=== PATIENT | female | born 1940 | race Caucasian/White ===

== ENCOUNTER 2018-07-26 19:41 | Emergency (ER) | payer MEDICARE, OTHER ==
[2018-07-26 20:05] VITALS: RESP 20; TEMP 98.4
[2018-07-26 21:24] VITALS: BP 129/75; PULSE 63; O2SAT 96
== END 2018-07-26 21:35 | DRG 594 ==
LOC: ED 19:41
DX: L97.412 Non-pressure chronic ulcer of right heel and midfoot with fat layer exposed (principal); E11.9 Type 2 diabetes mellitus without complications
CPT/HCPCS: 99282; 99283; A6232; A6446

== ENCOUNTER 2018-09-28 11:02 | Inpatient (IN) | payer MEDICARE, OTHER ==
[2018-09-28] MEDS ORDERED: VANCOMYCIN HCL 500 MG PDS 1,500 MG in SODIUM CHLORIDE 0.9% 250 ML 250 ML IV ONE (11:36)
[2018-09-28] MEDS ORDERED: SODIUM CHLORIDE 0.9% 1000ML 1,000 ML IV ONE (11:37)
[2018-09-28] MEDS ORDERED: ACETAMINOPHEN 650 MG SUP PR ONE ×2 (11:38→12:05)
[2018-09-28 12:07] LABS: APPEARANCE,URINE Clear; BILIRUBIN,URINE NEGATIVE (NEGATIVE); COLOR,URINE Yellow; GLUCOSE, URINE (UA) NEGATIVE (NEGATIVE); KETONES,URINE NEGATIVE (NEGATIVE); LEUKOCYTE ESTERASE ,URINE NEGATIVE (NEGATIVE); NITRATE,URINE NEGATIVE (NEGATIVE); OCCULT BLOOD,URINE TRACE INTACT (NEG-TRACE); UROBILINOGEN,URINE 0.2 (0.2-1.0 EU)
[2018-09-28 12:25] LABS: HEMATOCRIT 44 % (35-47); HEMOGLOBIN 13.7 gm/dl (12.0-15.5); MEAN CORPUSCULAR HEMOGLOBIN 26.1 pg (27.0-32.0); MEAN CORPUSCULAR HGB CONC 30.9 gm/dl (32.0-36.0); MEAN CORPUSCULAR VOLUME 85 fL (81-99)
[2018-09-28] MEDS ORDERED: VANCOMYCIN HYDROCHLORIDE 500 MG PDS IV ONE ×3 (12:34→23:35)
[2018-09-28] MEDS ORDERED: PIPERACILLIN/TAZOBACT 3.375 GM PDS IV ONE ×3 (12:34→23:29)
[2018-09-28 12:42] LABS: ALBUMIN 2.9 gm/dl (3.4-5.0); BILIRUBIN,TOTAL 0.5 mg/dl (0.2-1.0); CALCIUM 9.3 mg/dl (8.5-10.1); CARBON DIOXIDE 34.1 mEq/L (21-32); CREATININE 1.39 mg/dl (0.60-1.00); CRP INFLAMMATORY 5.32 mg/dl (0.00-0.33); TOTAL PROTEIN 7.5 gm/dl (6.4-8.2); TROP I 0.046 ng/ml (0.000-0.056)
[2018-09-28 12:44] LABS: POTASSIUM 2.9 mMol/L (3.5-5.1)
[2018-09-28 12:45] LABS: LACTIC ACID 1.9 mMol/L (0.0-2.0)
[2018-09-28] MEDS: PIPERACILLIN/TAZOBACT 3.375 GM 3.375 GM in SODIUM CHLORIDE 0.9% 100 ML 100 ML IV SCH ×3 (12:45→23:48)
[2018-09-28 12:52] LABS: BACTERIA TRACE (< 1+); CRYSTALS NEGATIVE (0-3 AVE/HPF); RBC,URINE 0-2 (0-3AV/HPF); WBC,URINE 0-2 (0-5AV/HPF)
[2018-09-28 13:00] LABS: BAND NEUTROPHILS % (MANUAL) 8 %; BASOPHILS % (MANUAL) 0 % (0-3); EOSINOPHILS % (MANUAL) 0 % (0-9); LYMPHOCYTES % (MANUAL) 4 % (10-50); MONOCYTES % (MANUAL) 2 % (0-12); NEUTROPHILS % (MANUAL) 86 % (37-80); NORMAL RBCS NORMAL RBCS
[2018-09-28 14:07] LABS: SEDIMENTATION RATE 27 mm/hr (0-20)
[2018-09-28] MEDS ORDERED: POTASSIUM CHLORIDE 2 MEQ/ML 60 MEQ, LIDOCAINE HCL 1% MDV 2 ML in SODIUM CHLORIDE 0.9% 1... IV ONE (14:16)
[2018-09-28] MEDS ORDERED: METOPROLOL TARTRATE 5 MG/5 ML SOL IV ONE ×2 (15:08→15:13)
[2018-09-28] MEDS ORDERED: LIDOCAINE HCL 1% MPF 30 SOL ONE (16:26)
[2018-09-28] MEDS ORDERED: POTASSIUM CHLORIDE 2 MEQ/ML SOL IV ONE (16:26)
[2018-09-28] MEDS ORDERED: SODIUM CHLORIDE 0.9% 100 ML 100 ML IV ONE ×2 (17:32→23:29)
[2018-09-28] MEDS ORDERED: ALUMINUM/MAGNESIUM 30 ML SUS PO PRN (18:13)
[2018-09-28] MEDS ORDERED: MAGNESIUM HYDROXIDE 30 ML SUS PO PRN (18:13)
[2018-09-28] MEDS ORDERED: DOCUSATE SODIUM 100 MG SGL PO PRN (18:13)
[2018-09-28] MEDS ORDERED: ASPIRIN EC 81 MG PO SCH (18:15)
[2018-09-28] MEDS ORDERED: PIPERACILLIN/TAZOBACT 3.375 GM 3 GM in SODIUM CHLORIDE 0.9% 100 ML 100 ML IV SCH (18:30)
[2018-09-28] MEDS: CLONAZEPAM 0.5 MG TAB PO SCH (20:59)
[2018-09-28] MEDS: POTASSIUM CHLORIDE 10 MEQ TER PO SCH (20:59)
[2018-09-28] MEDS: QUETIAPINE FUMARATE 25 MG TAB PO SCH (20:59)
[2018-09-28] MEDS ORDERED: NOVOLOG FLEXPEN SC SCH (21:00)
[2018-09-28] MEDS ORDERED: Non-Formulary Medication MISC (Cetirizine 10 Mg 10 MG) PO SCH (21:00)
[2018-09-28] MEDS ORDERED: POTASSIUM CHLORIDE 40 MEQ PO SCH (21:00)
[2018-09-28] MEDS: ACETAMINOPHEN 325 MG PO SCH (21:00)
[2018-09-28] MEDS: TRAMADOL HYDROCHLORIDE 50 MG TAB PO SCH (21:00)
[2018-09-28] MEDS: CETIRIZINE HYDROCHLORIDE 10 MG TAB PO SCH (21:04)
[2018-09-28] MEDS: PROPRANOLOL HCL 10 MG TABLET PO SCH (21:33)
[2018-09-28] MEDS ORDERED: SODIUM CHLORIDE 0.9% 250 ML 250 ML IV ONE (23:31)
[2018-09-29] MEDS: VANCOMYCIN HCL 500 MG PDS 1,500 MG in SODIUM CHLORIDE 0.9% 250 ML 250 ML IV SCH ×2 (01:26→17:05)
[2018-09-29] MEDS: SODIUM CHLORIDE 0.9% FLUSH 10 ML SOL IV PRN (05:26)
[2018-09-29] MEDS ORDERED: SODIUM CHLORIDE 0.9% 100 ML 100 ML IV ONE (06:07)
[2018-09-29] MEDS ORDERED: PIPERACILLIN/TAZOBACT 3.375 GM PDS IV ONE (06:07)
[2018-09-29] MEDS: PIPERACILLIN/TAZOBACT 3.375 GM 3.375 GM in SODIUM CHLORIDE 0.9% 100 ML 100 ML IV SCH ×2 (06:15→12:03)
[2018-09-29 07:50] LABS: HEMATOCRIT 37 % (35-47); HEMOGLOBIN 11.3 gm/dl (12.0-15.5); MEAN CORPUSCULAR HEMOGLOBIN 25.4 pg (27.0-32.0); MEAN CORPUSCULAR HGB CONC 30.1 gm/dl (32.0-36.0); MEAN CORPUSCULAR VOLUME 84 fL (81-99)
[2018-09-29 07:55] LABS: CALCIUM 8.5 mg/dl (8.5-10.1); CARBON DIOXIDE 28.2 mEq/L (21-32); CHOL/HDL RATIO 3.8 (2.2-4.5); CREATININE 1.65 mg/dl (0.60-1.00); CRP INFLAMMATORY 25.6 mg/dl (0.00-0.33); LDL CHOLESTEROL,CALCULATED 87.8 mg/dl (50-130); LDL/HDL RATIO 2.4 (1.1-3.1); POTASSIUM 3.3 mMol/L (3.5-5.1)
[2018-09-29 08:09] LABS: NEUTROPHILS % (MANUAL) 58 % (37-80)
[2018-09-29 08:10] LABS: BAND NEUTROPHILS % (MANUAL) 37 %; BASOPHILS % (MANUAL) 0 % (0-3); EOSINOPHILS % (MANUAL) 1 % (0-9); LYMPHOCYTES % (MANUAL) 2 % (10-50); MONOCYTES % (MANUAL) 2 % (0-12); NORMAL RBCS PRESENT
[2018-09-29] MEDS ORDERED: VITAMIN D PO SCH (09:00)
[2018-09-29] MEDS ORDERED: OMEPRAZOLE 20 MG CAPSULE PO SCH ×2 (09:00)
[2018-09-29] MEDS: NOVOLOG FLEXPEN SC SCH ×3 (09:24→18:27)
[2018-09-29] MEDS: TRAMADOL HYDROCHLORIDE 50 MG TAB PO SCH ×4 (09:44→21:58)
[2018-09-29] MEDS: ACETAMINOPHEN 325 MG PO SCH ×2 (09:45→21:58)
[2018-09-29] MEDS: CHOLECALCIFEROL 1,000 IU TAB PO SCH (09:45)
[2018-09-29] MEDS: QUETIAPINE FUMARATE 25 MG TAB PO SCH ×2 (09:45→21:58)
[2018-09-29] MEDS: POTASSIUM CHLORIDE 10 MEQ TER PO SCH ×3 (09:45→22:01)
[2018-09-29] MEDS: ASPIRIN EC 81 MG PO SCH (09:45)
[2018-09-29] MEDS: CLONAZEPAM 0.5 MG TAB PO SCH ×2 (09:46→21:58)
[2018-09-29] MEDS: ALLOPURINOL 100 MG TAB PO SCH (09:47)
[2018-09-29] MEDS: PROPRANOLOL HCL 10 MG TABLET PO SCH ×3 (10:56→21:58)
[2018-09-29] MEDS: INSULIN DEGLUDEC 200 UNIT/ML INSULN.PEN SQ SCH (11:55)
[2018-09-29] MEDS: PANTOPRAZOLE SODIUM 40 MG ECT PO SCH (11:55)
[2018-09-29] MEDS ORDERED: VANCOMYCIN HCL 500 MG PDS 1,500 MG in SODIUM CHLORIDE 0.9% 250 ML 250 ML IV SCH (13:33)
[2018-09-29] MEDS: CEFEPIME HYDROCHLORIDE 2 GM in SODIUM CHLORIDE 0.9% 100 ML 100 ML IV SCH (14:37)
[2018-09-29 15:02] LABS: CALCIUM 8.7 mg/dl (8.5-10.1); CARBON DIOXIDE 29.3 mEq/L (21-32); CREATININE 1.81 mg/dl (0.60-1.00); MAGNESIUM 1.2 mg/dl (1.8-2.4); POTASSIUM 3.6 mMol/L (3.5-5.1)
[2018-09-29 15:11] LABS: LACTIC ACID 2.8 mMol/L (0.0-2.0)
[2018-09-29 15:18] LABS: CRP INFLAMMATORY 28.32 mg/dl (0.00-0.33)
[2018-09-29] MEDS ORDERED: ACETAMINOPHEN 325 MG PO PRN (16:23)
[2018-09-29] MEDS ORDERED: LACTATED RINGERS 1,000 ML IV ONE (16:23)
[2018-09-29] MEDS ORDERED: MAGNESIUM SULFATE 1 GM/2 ML SOL IV ONE (16:30)
[2018-09-29] MEDS ORDERED: ACETAMINOPHEN 500 MG 500 MG TAB ONE (16:32)
[2018-09-29] MEDS ORDERED: ACETAMINOPHEN 500 MG 500 MG TAB PO PRN (16:44)
[2018-09-29] MEDS ORDERED: MAGNESIUM SULFATE 2 GM in NS 100 ML IV ONE (16:45)
[2018-09-29] MEDS ORDERED: MAGNESIUM SULFATE 5 GM/10 ML SOL ONE (16:55)
[2018-09-29] MEDS ORDERED: LACTATED RINGERS 1,000 ML IV SCH (17:45)
[2018-09-29] MEDS: VITE AC PO SCH (20:27)
[2018-09-29] MEDS: ASCORBATE SOD PO SCH (20:27)
[2018-09-29] MEDS: ARGININE PO SCH (20:27)
[2018-09-29] MEDS: CETIRIZINE HYDROCHLORIDE 10 MG TAB PO SCH (21:59)
[2018-09-29] MEDS: HEPARIN SODIUM 5000 U/ML SOL SC SCH (22:02)
[2018-09-30] MEDS: CEFEPIME HYDROCHLORIDE 2 GM in SODIUM CHLORIDE 0.9% 100 ML 100 ML IV SCH ×2 (01:45→14:39)
[2018-09-30] MEDS: HEPARIN SODIUM 5000 U/ML SOL SC SCH ×3 (06:09→21:52)
[2018-09-30 07:24] LABS: LACTIC ACID 1.3 mMol/L (0.0-2.0)
[2018-09-30 07:38] LABS: HEMOGLOBIN 11.2 gm/dl (12.0-15.5); MEAN CORPUSCULAR HEMOGLOBIN 26.3 pg (27.0-32.0); MEAN CORPUSCULAR HGB CONC 31.4 gm/dl (32.0-36.0)
[2018-09-30 07:41] LABS: CALCIUM 9.1 mg/dl (8.5-10.1); CARBON DIOXIDE 28.7 mEq/L (21-32); CREATININE 1.56 mg/dl (0.60-1.00); CRP INFLAMMATORY 27.51 mg/dl (0.00-0.33); POTASSIUM 3.9 mMol/L (3.5-5.1)
[2018-09-30] MEDS: ASCORBATE SOD PO SCH (07:49)
[2018-09-30] MEDS: VITE AC PO SCH (07:49)
[2018-09-30] MEDS: ARGININE PO SCH (07:49)
[2018-09-30] MEDS ORDERED: POTASSIUM CHLORIDE 2 MEQ/ML SOL IV ONE ×2 (09:21→22:31)
[2018-09-30] MEDS: CHOLECALCIFEROL 1,000 IU TAB PO SCH (09:33)
[2018-09-30] MEDS: PANTOPRAZOLE SODIUM 40 MG ECT PO SCH (09:33)
[2018-09-30] MEDS: CLONAZEPAM 0.5 MG TAB PO SCH ×2 (09:33→21:54)
[2018-09-30] MEDS: TRAMADOL HYDROCHLORIDE 50 MG TAB PO SCH ×4 (09:33→21:16)
[2018-09-30] MEDS: ACETAMINOPHEN 325 MG PO SCH ×2 (09:34→21:16)
[2018-09-30] MEDS: PROPRANOLOL HCL 10 MG TABLET PO SCH ×3 (09:34→21:17)
[2018-09-30] MEDS: POTASSIUM CHLORIDE 10 MEQ TER PO SCH ×3 (09:34→21:16)
[2018-09-30] MEDS: ALLOPURINOL 100 MG TAB PO SCH (09:34)
[2018-09-30] MEDS: SODIUM CHLORIDE 0.45% 1000 ML 1,000 ML with POTASSIUM CHLORIDE 2 MEQ/ML 20 MEQ IV SCH ×2 (09:35→22:34)
[2018-09-30] MEDS: INSULIN DEGLUDEC 200 UNIT/ML INSULN.PEN SQ SCH (09:36)
[2018-09-30] MEDS: NOVOLOG FLEXPEN SC SCH ×3 (09:36→17:33)
[2018-09-30] MEDS: QUETIAPINE FUMARATE 25 MG TAB PO SCH ×2 (09:38→21:54)
[2018-09-30] MEDS ORDERED: SODIUM CHLORIDE 0.9% 250 ML 250 ML IV ONE (20:33)
[2018-09-30] MEDS ORDERED: VANCOMYCIN HYDROCHLORIDE 500 MG PDS IV ONE (20:33)
[2018-09-30] MEDS ORDERED: VANCOMYCIN HCL 500 MG PDS 1,500 MG in SODIUM CHLORIDE 0.9% 250 ML 250 ML IV SCH (21:00)
[2018-09-30] MEDS: CETIRIZINE HYDROCHLORIDE 10 MG TAB PO SCH (21:16)
[2018-10-01] MEDS: CEFEPIME HYDROCHLORIDE 2 GM in SODIUM CHLORIDE 0.9% 100 ML 100 ML IV SCH (01:24)
[2018-10-01] MEDS: HEPARIN SODIUM 5000 U/ML SOL SC SCH ×3 (06:18→22:12)
[2018-10-01 07:19] LABS: HEMATOCRIT 35 % (35-47); HEMOGLOBIN 10.8 gm/dl (12.0-15.5); MEAN CORPUSCULAR HEMOGLOBIN 26.4 pg (27.0-32.0); MEAN CORPUSCULAR HGB CONC 30.6 gm/dl (32.0-36.0); MEAN CORPUSCULAR VOLUME 86 fL (81-99)
[2018-10-01 07:26] LABS: ALBUMIN 1.9 gm/dl (3.4-5.0); BILIRUBIN,TOTAL 0.4 mg/dl (0.2-1.0); CALCIUM 8.8 mg/dl (8.5-10.1); CREATININE 1.47 mg/dl (0.60-1.00); CRP INFLAMMATORY 23.8 mg/dl (0.00-0.33); POTASSIUM 5.2 mMol/L (3.5-5.1); TOTAL PROTEIN 6.5 gm/dl (6.4-8.2)
[2018-10-01 08:01] LABS: ANISOCYTOSIS SLIGHT AMT; BAND NEUTROPHILS % (MANUAL) 16 %; BASOPHILS % (MANUAL) 0 % (0-3); EOSINOPHILS % (MANUAL) 2 % (0-9); LYMPHOCYTES % (MANUAL) 5 % (10-50); MONOCYTES % (MANUAL) 1 % (0-12); NEUTROPHILS % (MANUAL) 76 % (37-80)
[2018-10-01] MEDS: ACETAMINOPHEN 325 MG PO SCH ×2 (09:34→20:26)
[2018-10-01] MEDS: CLONAZEPAM 0.5 MG TAB PO SCH ×2 (09:35→20:25)
[2018-10-01] MEDS: QUETIAPINE FUMARATE 25 MG TAB PO SCH ×2 (09:35→20:26)
[2018-10-01] MEDS: TRAMADOL HYDROCHLORIDE 50 MG TAB PO SCH ×4 (09:35→20:24)
[2018-10-01] MEDS: PROPRANOLOL HCL 10 MG TABLET PO SCH ×3 (09:35→20:25)
[2018-10-01] MEDS: PANTOPRAZOLE SODIUM 40 MG ECT PO SCH (09:35)
[2018-10-01] MEDS: ASPIRIN EC 81 MG PO SCH (09:36)
[2018-10-01] MEDS: ALLOPURINOL 100 MG TAB PO SCH (09:36)
[2018-10-01] MEDS: NOVOLOG FLEXPEN SC SCH ×4 (09:54→17:00)
[2018-10-01] MEDS: INSULIN DEGLUDEC 200 UNIT/ML INSULN.PEN SQ SCH (09:54)
[2018-10-01] MEDS: DOXYCYCLINE 100 MG TAB PO SCH ×2 (09:54→20:24)
[2018-10-01] MEDS: CHOLECALCIFEROL 1,000 IU TAB PO SCH (11:29)
[2018-10-01] MEDS: CETIRIZINE HYDROCHLORIDE 10 MG TAB PO SCH (20:26)
[2018-10-02] MEDS: HEPARIN SODIUM 5000 U/ML SOL SC SCH ×3 (05:37→21:49)
[2018-10-02] MEDS: TRAMADOL HYDROCHLORIDE 50 MG TAB PO SCH ×5 (07:18→21:44)
[2018-10-02 07:29] LABS: HEMATOCRIT 35 % (35-47); HEMOGLOBIN 10.6 gm/dl (12.0-15.5); MEAN CORPUSCULAR HEMOGLOBIN 26.2 pg (27.0-32.0); MEAN CORPUSCULAR HGB CONC 30.8 gm/dl (32.0-36.0); MEAN CORPUSCULAR VOLUME 85 fL (81-99)
[2018-10-02 07:31] LABS: CALCIUM 9.4 mg/dl (8.5-10.1); CARBON DIOXIDE 24.3 mEq/L (21-32); CREATININE 1.44 mg/dl (0.60-1.00); POTASSIUM 4.2 mMol/L (3.5-5.1)
[2018-10-02 08:00] LABS: CRP INFLAMMATORY 26.5 mg/dl (0.00-0.33)
[2018-10-02 08:13] LABS: BAND NEUTROPHILS % (MANUAL) 20 %; BASOPHILS % (MANUAL) 1 % (0-3); EOSINOPHILS % (MANUAL) 2 % (0-9); LYMPHOCYTES % (MANUAL) 10 % (10-50); MONOCYTES % (MANUAL) 2 % (0-12); NEUTROPHILS % (MANUAL) 65 % (37-80)
[2018-10-02 08:14] LABS: ANISOCYTOSIS SLIGHT AMT
[2018-10-02] MEDS: INSULIN DEGLUDEC 200 UNIT/ML INSULN.PEN SQ SCH (08:18)
[2018-10-02] MEDS: NOVOLOG FLEXPEN SC SCH ×3 (08:18→16:45)
[2018-10-02] MEDS: PANTOPRAZOLE SODIUM 40 MG ECT PO SCH (08:20)
[2018-10-02] MEDS: DOXYCYCLINE 100 MG TAB PO SCH ×2 (08:20→21:41)
[2018-10-02] MEDS: CLONAZEPAM 0.5 MG TAB PO SCH ×2 (08:20→21:48)
[2018-10-02] MEDS: PROPRANOLOL HCL 10 MG TABLET PO SCH ×3 (08:20→21:42)
[2018-10-02] MEDS: CHOLECALCIFEROL 1,000 IU TAB PO SCH (08:21)
[2018-10-02] MEDS: ALLOPURINOL 100 MG TAB PO SCH (08:21)
[2018-10-02] MEDS: QUETIAPINE FUMARATE 25 MG TAB PO SCH ×2 (08:21→21:43)
[2018-10-02] MEDS: ACETAMINOPHEN 325 MG PO SCH ×2 (08:21→21:43)
[2018-10-02] MEDS: FUROSEMIDE 80 MG TAB PO SCH ×2 (11:57→15:29)
[2018-10-02] MEDS ORDERED: AMOXICILLIN 250 MG CAP PO SCH (12:00)
[2018-10-02] MEDS ORDERED: AMOXICILLIN 125/5 ML BOTTLE ONE (12:17)
[2018-10-02] MEDS: AMOXICILLIN(FRIDGE) 125/5 ML BOTTLE PO SCH ×3 (12:23→21:40)
[2018-10-02] MEDS: CETIRIZINE HYDROCHLORIDE 10 MG TAB PO SCH (21:44)
[2018-10-03] MEDS: HEPARIN SODIUM 5000 U/ML SOL SC SCH ×3 (06:15→21:16)
[2018-10-03 07:12] LABS: BASOPHILS % (AUTO) 1 % (0-3); EOSINOPHILS % (AUTO) 4 % (0-9); HEMATOCRIT 34 % (35-47); HEMOGLOBIN 10.5 gm/dl (12.0-15.5); LYMPHOCYTES % (AUTO) 16.9 % (10-50); MEAN CORPUSCULAR HEMOGLOBIN 25.9 pg (27.0-32.0); MEAN CORPUSCULAR HGB CONC 30.6 gm/dl (32.0-36.0); MEAN CORPUSCULAR VOLUME 85 fL (81-99); MONOCYTES % (AUTO) 6.3 % (0-12); NEUTROPHILS % (AUTO) 71.8 % (37-80)
[2018-10-03 07:13] LABS: CALCIUM 9.4 mg/dl (8.5-10.1); CARBON DIOXIDE 27.4 mEq/L (21-32); CREATININE 1.49 mg/dl (0.60-1.00); CRP INFLAMMATORY 24.19 mg/dl (0.00-0.33); POTASSIUM 3.4 mMol/L (3.5-5.1)
[2018-10-03] MEDS: NOVOLOG FLEXPEN SC SCH ×3 (09:12→17:15)
[2018-10-03] MEDS ORDERED: INSULIN DEGLUDEC 200 UNIT/ML INSULN.PEN SQ SCH (09:12)
[2018-10-03] MEDS: DOXYCYCLINE 100 MG TAB PO SCH ×2 (10:00→21:08)
[2018-10-03] MEDS: ASPIRIN EC 81 MG PO SCH (10:00)
[2018-10-03] MEDS: CLONAZEPAM 0.5 MG TAB PO SCH ×2 (10:00→21:08)
[2018-10-03] MEDS: FUROSEMIDE 40 MG SOL IV SCH ×3 (10:00→12:52)
[2018-10-03] MEDS: QUETIAPINE FUMARATE 25 MG TAB PO SCH ×2 (10:01→21:08)
[2018-10-03] MEDS: PROPRANOLOL HCL 10 MG TABLET PO SCH ×3 (10:01→21:09)
[2018-10-03] MEDS: ACETAMINOPHEN 325 MG PO SCH ×2 (10:01→21:08)
[2018-10-03] MEDS: PANTOPRAZOLE SODIUM 40 MG ECT PO SCH (10:01)
[2018-10-03] MEDS: POTASSIUM CHLORIDE 10 MEQ TER PO SCH ×2 (10:02→12:59)
[2018-10-03] MEDS: ALLOPURINOL 100 MG TAB PO SCH (10:02)
[2018-10-03] MEDS: TRAMADOL HYDROCHLORIDE 50 MG TAB PO SCH ×4 (10:02→21:08)
[2018-10-03] MEDS: AMOXICILLIN(FRIDGE) 125/5 ML BOTTLE PO SCH ×3 (10:06→21:09)
[2018-10-03] MEDS: CHOLECALCIFEROL 1,000 IU TAB PO SCH (10:06)
[2018-10-03] MEDS ORDERED: FUROSEMIDE 40 MG SOL IV ONE ×2 (11:01→19:38)
[2018-10-03] MEDS: SODIUM CHLORIDE 0.9% FLUSH 10 ML SOL IV PRN ×2 (11:29→21:06)
[2018-10-03 17:16] LABS: CALCIUM 9.7 mg/dl (8.5-10.1); CARBON DIOXIDE 30.6 mEq/L (21-32); CREATININE 1.45 mg/dl (0.60-1.00); POTASSIUM 3.7 mMol/L (3.5-5.1)
[2018-10-03] MEDS: INSULIN DEGLUDEC 200 UNIT/ML INSULN.PEN SQ SCH (17:23)
[2018-10-03] MEDS ORDERED: AMOXICILLIN 125/5 ML BOTTLE ONE (18:41)
[2018-10-03] MEDS: CETIRIZINE HYDROCHLORIDE 10 MG TAB PO SCH (21:08)
[2018-10-04] MEDS: SODIUM CHLORIDE 0.9% FLUSH 10 ML SOL IV PRN (06:44)
[2018-10-04 07:28] LABS: BASOPHILS % (AUTO) 1 % (0-3); EOSINOPHILS % (AUTO) 4 % (0-9); HEMATOCRIT 36 % (35-47); HEMOGLOBIN 10.7 gm/dl (12.0-15.5); LYMPHOCYTES % (AUTO) 18.4 % (10-50); MEAN CORPUSCULAR HEMOGLOBIN 25.5 pg (27.0-32.0); MEAN CORPUSCULAR HGB CONC 29.9 gm/dl (32.0-36.0); MEAN CORPUSCULAR VOLUME 85 fL (81-99); MONOCYTES % (AUTO) 7.9 % (0-12); NEUTROPHILS % (AUTO) 68.5 % (37-80)
[2018-10-04 07:42] LABS: ALBUMIN 1.9 gm/dl (3.4-5.0); BILIRUBIN,TOTAL 0.3 mg/dl (0.2-1.0); CALCIUM 9.8 mg/dl (8.5-10.1); CARBON DIOXIDE 30.4 mEq/L (21-32); CREATININE 1.42 mg/dl (0.60-1.00); POTASSIUM 3.3 mMol/L (3.5-5.1); TROP I 0.313 ng/ml (0.000-0.056)
[2018-10-04] MEDS: HEPARIN SODIUM 5000 U/ML SOL SC SCH ×3 (07:57→21:37)
[2018-10-04] MEDS: SODIUM CHLORIDE 0.9% FLUSH 10 ML SOL IV SCH ×4 (07:58→21:34)
[2018-10-04] MEDS: NOVOLOG FLEXPEN SC SCH ×3 (09:43→17:21)
[2018-10-04] MEDS: AMOXICILLIN(FRIDGE) 125/5 ML BOTTLE PO SCH ×3 (09:49→21:27)
[2018-10-04] MEDS: DOXYCYCLINE 100 MG TAB PO SCH ×2 (09:50→21:28)
[2018-10-04] MEDS: CLONAZEPAM 0.5 MG TAB PO SCH ×2 (09:51→21:37)
[2018-10-04] MEDS: FUROSEMIDE 40 MG SOL IV SCH ×2 (09:51→12:01)
[2018-10-04] MEDS: PROPRANOLOL HCL 10 MG TABLET PO SCH ×3 (09:52→21:31)
[2018-10-04] MEDS: PANTOPRAZOLE SODIUM 40 MG ECT PO SCH (09:53)
[2018-10-04] MEDS: ACETAMINOPHEN 325 MG PO SCH ×2 (09:53→21:33)
[2018-10-04] MEDS: TRAMADOL HYDROCHLORIDE 50 MG TAB PO SCH ×4 (09:54→21:37)
[2018-10-04] MEDS: CHOLECALCIFEROL 1,000 IU TAB PO SCH (09:54)
[2018-10-04] MEDS: ALLOPURINOL 100 MG TAB PO SCH (09:54)
[2018-10-04] MEDS: INSULIN DEGLUDEC 200 UNIT/ML INSULN.PEN SQ SCH (09:55)
[2018-10-04] MEDS: POTASSIUM CHLORIDE 10 MEQ TER PO SCH ×2 (10:00→12:04)
[2018-10-04] MEDS: QUETIAPINE FUMARATE 25 MG TAB PO SCH ×2 (10:01→21:32)
[2018-10-04] MEDS: [UNRECOGNIZED DRUG - OTHER] PO SCH ×4 (12:01→21:29)
[2018-10-04] MEDS: CETIRIZINE HYDROCHLORIDE 10 MG TAB PO SCH (21:34)
[2018-10-05] MEDS: HEPARIN SODIUM 5000 U/ML SOL SC SCH ×3 (05:32→21:27)
[2018-10-05] MEDS: SODIUM CHLORIDE 0.9% FLUSH 10 ML SOL IV SCH ×3 (05:32→21:37)
[2018-10-05] MEDS: [UNRECOGNIZED DRUG - OTHER] PO SCH ×5 (06:02→21:24)
[2018-10-05 07:28] LABS: CALCIUM 9.3 mg/dl (8.5-10.1); CARBON DIOXIDE 31.5 mEq/L (21-32); CREATININE 1.22 mg/dl (0.60-1.00); CRP INFLAMMATORY 12.81 mg/dl (0.00-0.33); POTASSIUM 3.7 mMol/L (3.5-5.1); TROP I 0.213 ng/ml (0.000-0.056)
[2018-10-05 07:47] LABS: BASOPHILS % (AUTO) 1 % (0-3); EOSINOPHILS % (AUTO) 4 % (0-9); HEMATOCRIT 33 % (35-47); HEMOGLOBIN 10.3 gm/dl (12.0-15.5); LYMPHOCYTES % (AUTO) 27.8 % (10-50); MEAN CORPUSCULAR HEMOGLOBIN 25.7 pg (27.0-32.0); MEAN CORPUSCULAR HGB CONC 30.8 gm/dl (32.0-36.0); MEAN CORPUSCULAR VOLUME 83 fL (81-99); MONOCYTES % (AUTO) 4.6 % (0-12); NEUTROPHILS % (AUTO) 62.9 % (37-80)
[2018-10-05] MEDS: ACETAMINOPHEN 325 MG PO SCH ×2 (08:26→21:25)
[2018-10-05] MEDS: PROPRANOLOL HCL 10 MG TABLET PO SCH ×3 (08:26→21:25)
[2018-10-05] MEDS: CHOLECALCIFEROL 1,000 IU TAB PO SCH (08:26)
[2018-10-05] MEDS: ASPIRIN EC 81 MG PO SCH (08:27)
[2018-10-05] MEDS: QUETIAPINE FUMARATE 25 MG TAB PO SCH ×2 (08:27→21:25)
[2018-10-05] MEDS: PANTOPRAZOLE SODIUM 40 MG ECT PO SCH (08:27)
[2018-10-05] MEDS: ALLOPURINOL 100 MG TAB PO SCH (08:27)
[2018-10-05] MEDS: DOXYCYCLINE 100 MG TAB PO SCH ×2 (08:27→21:23)
[2018-10-05] MEDS ORDERED: AMOXICILLIN 125/5 ML BOTTLE ONE (09:31)
[2018-10-05] MEDS: NOVOLOG FLEXPEN SC SCH ×3 (09:34→17:19)
[2018-10-05] MEDS: AMOXICILLIN(FRIDGE) 125/5 ML BOTTLE PO SCH ×3 (09:36→21:22)
[2018-10-05] MEDS: CLONAZEPAM 0.5 MG TAB PO SCH ×2 (09:36→21:24)
[2018-10-05] MEDS: TRAMADOL HYDROCHLORIDE 50 MG TAB PO SCH ×4 (09:36→21:24)
[2018-10-05] MEDS: INSULIN DEGLUDEC 200 UNIT/ML INSULN.PEN SQ SCH (09:37)
[2018-10-05] MEDS: FUROSEMIDE 80 MG TAB PO SCH ×2 (09:57→12:03)
[2018-10-05] MEDS: FUROSEMIDE 40 MG SOL IV SCH (09:58)
[2018-10-05] MEDS: POTASSIUM CHLORIDE 10 MEQ TER PO SCH (21:24)
[2018-10-05] MEDS: CETIRIZINE HYDROCHLORIDE 10 MG TAB PO SCH (21:26)
[2018-10-06] MEDS: HEPARIN SODIUM 5000 U/ML SOL SC SCH ×3 (05:54→21:23)
[2018-10-06] MEDS: SODIUM CHLORIDE 0.9% FLUSH 10 ML SOL IV SCH ×3 (05:55→21:21)
[2018-10-06] MEDS: [UNRECOGNIZED DRUG - OTHER] PO SCH ×5 (06:00→21:18)
[2018-10-06 07:39] LABS: CALCIUM 8.7 mg/dl (8.5-10.1); CARBON DIOXIDE 31.8 mEq/L (21-32); CREATININE 1.29 mg/dl (0.60-1.00); CRP INFLAMMATORY 9.9 mg/dl (0.00-0.33); POTASSIUM 3.9 mMol/L (3.5-5.1)
[2018-10-06 07:58] LABS: BASOPHILS % (AUTO) 1 % (0-3); EOSINOPHILS % (AUTO) 4 % (0-9); HEMATOCRIT 35 % (35-47); HEMOGLOBIN 10.6 gm/dl (12.0-15.5); LYMPHOCYTES % (AUTO) 25.2 % (10-50); MEAN CORPUSCULAR HEMOGLOBIN 25.9 pg (27.0-32.0); MEAN CORPUSCULAR HGB CONC 30.5 gm/dl (32.0-36.0); MEAN CORPUSCULAR VOLUME 85 fL (81-99); MONOCYTES % (AUTO) 7.3 % (0-12)
[2018-10-06] MEDS: INSULIN DEGLUDEC 200 UNIT/ML INSULN.PEN SQ SCH (08:37)
[2018-10-06] MEDS: NOVOLOG FLEXPEN SC SCH ×3 (08:39→17:20)
[2018-10-06] MEDS: ASPIRIN EC 81 MG PO SCH (08:40)
[2018-10-06] MEDS: DOXYCYCLINE 100 MG TAB PO SCH ×2 (08:41→21:18)
[2018-10-06] MEDS: FUROSEMIDE 80 MG TAB PO SCH ×2 (08:41→12:10)
[2018-10-06] MEDS: POTASSIUM CHLORIDE 10 MEQ TER PO SCH ×2 (08:41→21:18)
[2018-10-06] MEDS: PROPRANOLOL HCL 10 MG TABLET PO SCH ×3 (08:41→21:17)
[2018-10-06] MEDS: PANTOPRAZOLE SODIUM 40 MG ECT PO SCH (08:42)
[2018-10-06] MEDS: ACETAMINOPHEN 325 MG PO SCH ×2 (08:43→21:17)
[2018-10-06] MEDS: ALLOPURINOL 100 MG TAB PO SCH (08:43)
[2018-10-06] MEDS: CHOLECALCIFEROL 1,000 IU TAB PO SCH (08:43)
[2018-10-06] MEDS: QUETIAPINE FUMARATE 25 MG TAB PO SCH ×2 (08:43→21:20)
[2018-10-06] MEDS: TRAMADOL HYDROCHLORIDE 50 MG TAB PO SCH ×4 (08:53→21:17)
[2018-10-06] MEDS: CLONAZEPAM 0.5 MG TAB PO SCH ×2 (08:53→21:17)
[2018-10-06] MEDS: AMOXICILLIN(FRIDGE) 125/5 ML BOTTLE PO SCH ×3 (08:53→21:16)
[2018-10-06] MEDS ORDERED: FUROSEMIDE 80 MG TAB ONE (12:04)
[2018-10-06] MEDS ORDERED: AMOXICILLIN 125/5 ML BOTTLE ONE (21:11)
[2018-10-06] MEDS: CETIRIZINE HYDROCHLORIDE 10 MG TAB PO SCH (21:20)
[2018-10-07] MEDS: HEPARIN SODIUM 5000 U/ML SOL SC SCH ×2 (06:09→13:59)
[2018-10-07] MEDS: SODIUM CHLORIDE 0.9% FLUSH 10 ML SOL IV SCH ×2 (06:09→14:00)
[2018-10-07] MEDS: [UNRECOGNIZED DRUG - OTHER] PO SCH ×3 (06:19→13:59)
[2018-10-07 07:38] LABS: CALCIUM 8.8 mg/dl (8.5-10.1); CARBON DIOXIDE 31.7 mEq/L (21-32); CREATININE 1.34 mg/dl (0.60-1.00)
[2018-10-07 07:45] LABS: BASOPHILS % (AUTO) 1 % (0-3); EOSINOPHILS % (AUTO) 4 % (0-9); HEMATOCRIT 35 % (35-47); HEMOGLOBIN 10.4 gm/dl (12.0-15.5); LYMPHOCYTES % (AUTO) 22.3 % (10-50); MEAN CORPUSCULAR HEMOGLOBIN 25.4 pg (27.0-32.0); MEAN CORPUSCULAR HGB CONC 30.1 gm/dl (32.0-36.0); MEAN CORPUSCULAR VOLUME 84 fL (81-99); MONOCYTES % (AUTO) 8.7 % (0-12); NEUTROPHILS % (AUTO) 64.4 % (37-80)
[2018-10-07 08:23] VITALS: RESP 20
[2018-10-07] MEDS: DOXYCYCLINE 100 MG TAB PO SCH (09:59)
[2018-10-07] MEDS: QUETIAPINE FUMARATE 25 MG TAB PO SCH (09:59)
[2018-10-07] MEDS: ALLOPURINOL 100 MG TAB PO SCH (10:00)
[2018-10-07] MEDS: POTASSIUM CHLORIDE 10 MEQ TER PO SCH (10:00)
[2018-10-07] MEDS: PANTOPRAZOLE SODIUM 40 MG ECT PO SCH (10:00)
[2018-10-07] MEDS: ACETAMINOPHEN 325 MG PO SCH (10:00)
[2018-10-07] MEDS: CHOLECALCIFEROL 1,000 IU TAB PO SCH (10:01)
[2018-10-07] MEDS: PROPRANOLOL HCL 10 MG TABLET PO SCH ×2 (10:02→14:01)
[2018-10-07] MEDS: CLONAZEPAM 0.5 MG TAB PO SCH (10:13)
[2018-10-07] MEDS: TRAMADOL HYDROCHLORIDE 50 MG TAB PO SCH ×2 (10:13→13:59)
[2018-10-07] MEDS: NOVOLOG FLEXPEN SC SCH ×2 (10:16→12:16)
[2018-10-07] MEDS: INSULIN DEGLUDEC 200 UNIT/ML INSULN.PEN SQ SCH (10:18)
[2018-10-07] MEDS ORDERED: FUROSEMIDE 80 MG TAB ONE ×2 (10:45→13:21)
[2018-10-07] MEDS: FUROSEMIDE 80 MG TAB PO SCH ×2 (10:49→13:23)
[2018-10-07 12:29] VITALS: BP 109/66; PULSE 72; TEMP 98.2; O2SAT 91
== END 2018-10-07 14:17 | DRG 592 ==
LOC: ED 11:02 → UNDOADMIN 15:30 → ACUTE CARE 15:30
PROVIDERS: ADMIT Family Medicine; ATTEND Family Medicine
PROC: F01ZBFZ Bed Mobility Assessment using Assistive, Adaptive, Supportive or Protective Equipment (ICD-10-PCS; principal; 2018-09-29)
PROC: F01ZCFZ Transfer Assessment using Assistive, Adaptive, Supportive or Protective Equipment (ICD-10-PCS; 2018-09-29)
PROC: F01H0FZ Muscle Performance Assessment of Integumentary System - Whole Body using Assistive, Adaptive, Supportive or Protective Equipment (ICD-10-PCS; 2018-09-30)
PROC: F01K5YZ Range of Motion and Joint Integrity Assessment of Musculoskeletal System - Upper Back / Upper Extremity using Other Equipment (ICD-10-PCS; 2018-09-30)
PROC: F02Z3ZZ Grooming/Personal Hygiene Assessment (ICD-10-PCS; 2018-09-30)
PROC: F02Z0ZZ Bathing/Showering Assessment (ICD-10-PCS; 2018-09-30)
DX: L03.115 Cellulitis of right lower limb (principal); L97.429 Non-pressure chronic ulcer of left heel and midfoot with unspecified severity; L89.613 Pressure ulcer of right heel, stage 3; A41.02 Sepsis due to Methicillin resistant Staphylococcus aureus; R65.20 Severe sepsis without septic shock; E87.0 Hyperosmolality and hypernatremia; L97.211 Non-pressure chronic ulcer of right calf limited to breakdown of skin; I48.2 Chronic atrial fibrillation; E11.22 Type 2 diabetes mellitus with diabetic chronic kidney disease; I12.9 Hypertensive chronic kidney disease with stage 1 through stage 4 chronic kidney disease, or unspecified chronic kidney disease; N18.9 Chronic kidney disease, unspecified; Z79.4 Long term (current) use of insulin; E87.6 Hypokalemia; R53.1 Weakness; B96.20 Unspecified Escherichia coli [E. coli] as the cause of diseases classified elsewhere; R09.02 Hypoxemia; I50.9 Heart failure, unspecified; R41.82 Altered mental status, unspecified
CPT/HCPCS: 36415; 51798; 70450; 71045; 71046; 80048; 80053; 80061; 81001; 82962; 83735; 83880; 84100; 84132; 84484; 85007; 85025; 85027; 85651; 87040; 87070; 87077; 87186; 93005; 93012; 96365; 96366; 96374; 99070; 99222; 99231; 99232; 99285; J0692; J1644; J1940; J2543; J3370; J3475; J3480; A6232; A9270-GY; J1815; J2001; J3490

== ENCOUNTER 2018-10-25 17:14 | Inpatient (IN) | payer MEDICARE, OTHER ==
[2018-10-25] MEDS ORDERED: SODIUM CHLORIDE 0.9% 50 ML 25 ML IV PRN (17:32)
[2018-10-25] MEDS: SODIUM CHLORIDE 0.9% FLUSH 10 ML SOL IV SCH ×2 (18:20→19:41)
[2018-10-25] MEDS ORDERED: PIPERACILLIN/TAZOBACT 3.375 GM PDS IV ONE ×2 (19:30→23:35)
[2018-10-25] MEDS ORDERED: SODIUM CHLORIDE 0.9% 100 ML 100 ML IV ONE ×3 (19:30→23:35)
[2018-10-25] MEDS: PIPERACILLIN/TAZOBACT 3.375 GM 3.375 GM in SODIUM CHLORIDE 0.9% 100 ML 100 ML IV SCH (19:38)
[2018-10-25] MEDS ORDERED: VANCOMYCIN HYDROCHLORIDE 500 MG PDS IV ONE (20:22)
[2018-10-25] MEDS: VANCOMYCIN HCL 500 MG PDS 500 MG in SODIUM CHLORIDE 0.9% 100 ML 100 ML IV SCH (20:30)
[2018-10-25] MEDS ORDERED: DOCUSATE SODIUM 100 MG SGL PO PRN (22:56)
[2018-10-25] MEDS ORDERED: ALUMINUM/MAGNESIUM 30 ML SUS PO PRN (22:56)
[2018-10-25] MEDS ORDERED: ACETAMINOPHEN 325 MG PO PRN (22:56)
[2018-10-25] MEDS: FUROSEMIDE 40 MG TAB PO SCH (23:38)
[2018-10-25] MEDS: ACETAMINOPHEN 325 MG PO SCH (23:38)
[2018-10-25] MEDS: POTASSIUM CHLORIDE 10 MEQ TER PO SCH (23:39)
[2018-10-25] MEDS: TRAMADOL HYDROCHLORIDE 50 MG TAB PO SCH (23:39)
[2018-10-25] MEDS: QUETIAPINE FUMARATE 25 MG TAB PO SCH (23:39)
[2018-10-25] MEDS: NOVOLOG FLEXPEN SC SCH (23:41)
[2018-10-26] MEDS: PIPERACILLIN/TAZOBACT 3.375 GM 3.375 GM in SODIUM CHLORIDE 0.9% 100 ML 100 ML IV SCH ×6 (00:02→23:11)
[2018-10-26] MEDS ORDERED: VANCOMYCIN HYDROCHLORIDE 500 MG PDS IV ONE ×2 (05:35→19:48)
[2018-10-26] MEDS ORDERED: SODIUM CHLORIDE 0.9% 100 ML 100 ML IV ONE ×5 (05:35→22:42)
[2018-10-26] MEDS: VANCOMYCIN HCL 500 MG PDS 500 MG in SODIUM CHLORIDE 0.9% 100 ML 100 ML IV SCH ×3 (05:41→23:11)
[2018-10-26] MEDS: SODIUM CHLORIDE 0.9% FLUSH 10 ML SOL IV SCH ×3 (05:41→20:02)
[2018-10-26] MEDS ORDERED: PIPERACILLIN/TAZOBACT 3.375 GM PDS IV ONE ×3 (07:05→22:42)
[2018-10-26 07:48] LABS: BASOPHILS % (AUTO) 1 % (0-3); EOSINOPHILS % (AUTO) 7 % (0-9); HEMATOCRIT 36 % (35-47); HEMOGLOBIN 10.6 gm/dl (12.0-15.5); LYMPHOCYTES % (AUTO) 27.4 % (10-50); MEAN CORPUSCULAR HEMOGLOBIN 25.3 pg (27.0-32.0); MEAN CORPUSCULAR HGB CONC 29.6 gm/dl (32.0-36.0); MEAN CORPUSCULAR VOLUME 85 fL (81-99); NEUTROPHILS % (AUTO) 54.3 % (37-80)
[2018-10-26 07:59] LABS: CALCIUM 9.1 mg/dl (8.5-10.1); CARBON DIOXIDE 32.7 mEq/L (21-32); CREATININE 1.24 mg/dl (0.60-1.00); CRP INFLAMMATORY 10.71 mg/dl (0.00-0.33); POTASSIUM 3.7 mMol/L (3.5-5.1)
[2018-10-26] MEDS: FUROSEMIDE 40 MG TAB PO SCH ×2 (09:26→22:01)
[2018-10-26] MEDS: POTASSIUM CHLORIDE 10 MEQ TER PO SCH ×2 (09:26→22:27)
[2018-10-26] MEDS: PANTOPRAZOLE SODIUM 40 MG ECT PO SCH (09:27)
[2018-10-26] MEDS: QUETIAPINE FUMARATE 25 MG TAB PO SCH ×2 (09:27→22:02)
[2018-10-26] MEDS: ACETAMINOPHEN 325 MG PO SCH ×2 (09:28→22:02)
[2018-10-26] MEDS: TRAMADOL HYDROCHLORIDE 50 MG TAB PO SCH ×4 (09:29→22:02)
[2018-10-26] MEDS: ALLOPURINOL 100 MG TAB PO SCH (09:29)
[2018-10-26] MEDS: ENOXAPARIN 40 MG SOL SC SCH (09:29)
[2018-10-26] MEDS: NOVOLOG FLEXPEN SC SCH ×7 (09:30→22:28)
[2018-10-26] MEDS: PROPRANOLOL HCL 10 MG TABLET PO SCH ×3 (09:40→22:02)
[2018-10-26] MEDS: CLONAZEPAM 0.5 MG TAB PO SCH ×2 (09:40→22:26)
[2018-10-26] MEDS: INSULIN DEGLUDEC 200 UNIT/ML INSULN.PEN SQ SCH (13:07)
[2018-10-26] MEDS: ASPIRIN EC 81 MG PO SCH (23:42)
[2018-10-27] MEDS ORDERED: PIPERACILLIN/TAZOBACT 3.375 GM PDS IV ONE (04:08)
[2018-10-27] MEDS ORDERED: SODIUM CHLORIDE 0.9% 100 ML 100 ML IV ONE ×2 (04:08→08:01)
[2018-10-27] MEDS: SODIUM CHLORIDE 0.9% FLUSH 10 ML SOL IV SCH ×3 (05:06→12:12)
[2018-10-27] MEDS: PIPERACILLIN/TAZOBACT 3.375 GM 3.375 GM in SODIUM CHLORIDE 0.9% 100 ML 100 ML IV SCH (05:06)
[2018-10-27 08:01] LABS: BASOPHILS % (AUTO) 1 % (0-3); EOSINOPHILS % (AUTO) 6 % (0-9); HEMATOCRIT 35 % (35-47); HEMOGLOBIN 10.6 gm/dl (12.0-15.5); LYMPHOCYTES % (AUTO) 28.9 % (10-50); MEAN CORPUSCULAR HEMOGLOBIN 25.8 pg (27.0-32.0); MEAN CORPUSCULAR HGB CONC 30.7 gm/dl (32.0-36.0); MEAN CORPUSCULAR VOLUME 84 fL (81-99); MONOCYTES % (AUTO) 8.8 % (0-12); NEUTROPHILS % (AUTO) 55.5 % (37-80)
[2018-10-27] MEDS ORDERED: VANCOMYCIN HYDROCHLORIDE 500 MG PDS IV ONE (08:01)
[2018-10-27] MEDS: VANCOMYCIN HCL 500 MG PDS 500 MG in SODIUM CHLORIDE 0.9% 100 ML 100 ML IV SCH (08:13)
[2018-10-27 08:16] LABS: CALCIUM 9.3 mg/dl (8.5-10.1); CREATININE 1.4 mg/dl (0.60-1.00); CRP INFLAMMATORY 9.08 mg/dl (0.00-0.33); POTASSIUM 3.9 mMol/L (3.5-5.1)
[2018-10-27 08:29] LABS: CARBON DIOXIDE 34.9 mEq/L (21-32)
[2018-10-27] MEDS: NOVOLOG FLEXPEN SC SCH ×7 (09:37→21:46)
[2018-10-27] MEDS: PANTOPRAZOLE SODIUM 40 MG ECT PO SCH (10:33)
[2018-10-27] MEDS: ALLOPURINOL 100 MG TAB PO SCH (10:33)
[2018-10-27] MEDS: FUROSEMIDE 80 MG TAB PO SCH ×2 (10:33→21:42)
[2018-10-27] MEDS: POTASSIUM CHLORIDE 10 MEQ TER PO SCH ×2 (10:43→21:42)
[2018-10-27] MEDS: QUETIAPINE FUMARATE 25 MG TAB PO SCH ×2 (10:44→21:42)
[2018-10-27] MEDS: TRAMADOL HYDROCHLORIDE 50 MG TAB PO SCH ×4 (10:45→23:38)
[2018-10-27] MEDS: ACETAMINOPHEN 325 MG PO SCH ×2 (10:45→21:42)
[2018-10-27] MEDS: ENOXAPARIN 40 MG SOL SC SCH (10:49)
[2018-10-27] MEDS: INSULIN DEGLUDEC 200 UNIT/ML INSULN.PEN SQ SCH (10:50)
[2018-10-27] MEDS: CLONAZEPAM 0.5 MG TAB PO SCH ×2 (12:23→21:40)
[2018-10-27] MEDS: PROPRANOLOL HCL 10 MG TABLET PO SCH ×3 (12:24→23:36)
[2018-10-27] MEDS: FUROSEMIDE 40 MG TAB PO SCH (16:23)
[2018-10-27] MEDS: DOXYCYCLINE 100 MG TAB PO SCH (21:39)
[2018-10-27] MEDS: ASPIRIN EC 81 MG PO SCH (23:38)
[2018-10-28 07:26] LABS: BASOPHILS % (AUTO) 1 % (0-3); EOSINOPHILS % (AUTO) 7 % (0-9); HEMATOCRIT 35 % (35-47); HEMOGLOBIN 10.5 gm/dl (12.0-15.5); LYMPHOCYTES % (AUTO) 32.2 % (10-50); MEAN CORPUSCULAR HEMOGLOBIN 25.3 pg (27.0-32.0); MEAN CORPUSCULAR HGB CONC 30.2 gm/dl (32.0-36.0); MEAN CORPUSCULAR VOLUME 84 fL (81-99); MONOCYTES % (AUTO) 8.7 % (0-12); NEUTROPHILS % (AUTO) 51.2 % (37-80)
[2018-10-28 07:41] LABS: CALCIUM 8.7 mg/dl (8.5-10.1); CARBON DIOXIDE 33.2 mEq/L (21-32); CREATININE 1.32 mg/dl (0.60-1.00); CRP INFLAMMATORY 8.08 mg/dl (0.00-0.33)
[2018-10-28] MEDS: NOVOLOG FLEXPEN SC SCH ×7 (08:23→21:59)
[2018-10-28] MEDS: INSULIN DEGLUDEC 200 UNIT/ML INSULN.PEN SQ SCH (08:28)
[2018-10-28] MEDS: DOXYCYCLINE 100 MG TAB PO SCH ×2 (09:21→21:54)
[2018-10-28] MEDS: FUROSEMIDE 80 MG TAB PO SCH ×2 (09:22→13:53)
[2018-10-28] MEDS: POTASSIUM CHLORIDE 10 MEQ TER PO SCH ×2 (09:22→21:51)
[2018-10-28] MEDS: PROPRANOLOL HCL 10 MG TABLET PO SCH ×3 (09:23→21:53)
[2018-10-28] MEDS: CLONAZEPAM 0.5 MG TAB PO SCH ×2 (09:23→21:50)
[2018-10-28] MEDS: QUETIAPINE FUMARATE 25 MG TAB PO SCH ×2 (09:24→21:55)
[2018-10-28] MEDS: PANTOPRAZOLE SODIUM 40 MG ECT PO SCH (09:24)
[2018-10-28] MEDS: ALLOPURINOL 100 MG TAB PO SCH (09:24)
[2018-10-28] MEDS: TRAMADOL HYDROCHLORIDE 50 MG TAB PO SCH ×4 (09:24→21:48)
[2018-10-28] MEDS: ACETAMINOPHEN 325 MG PO SCH ×2 (09:25→21:54)
[2018-10-28] MEDS: ENOXAPARIN 40 MG SOL SC SCH (10:08)
[2018-10-29 00:43] VITALS: O2SAT 93
[2018-10-29 07:37] LABS: BASOPHILS % (AUTO) 1 % (0-3); EOSINOPHILS % (AUTO) 6 % (0-9); HEMATOCRIT 36 % (35-47); HEMOGLOBIN 10.7 gm/dl (12.0-15.5); LYMPHOCYTES % (AUTO) 29.3 % (10-50); MEAN CORPUSCULAR HEMOGLOBIN 25.3 pg (27.0-32.0); MEAN CORPUSCULAR HGB CONC 29.7 gm/dl (32.0-36.0); MEAN CORPUSCULAR VOLUME 85 fL (81-99); MONOCYTES % (AUTO) 8.6 % (0-12); NEUTROPHILS % (AUTO) 54.8 % (37-80)
[2018-10-29 07:46] LABS: CALCIUM 9.1 mg/dl (8.5-10.1); CREATININE 1.24 mg/dl (0.60-1.00); CRP INFLAMMATORY 6.37 mg/dl (0.00-0.33); POTASSIUM 3.9 mMol/L (3.5-5.1)
[2018-10-29 07:51] LABS: CARBON DIOXIDE 32.5 mEq/L (21-32)
[2018-10-29] MEDS: NOVOLOG FLEXPEN SC SCH ×4 (08:40→13:28)
[2018-10-29] MEDS: ALLOPURINOL 100 MG TAB PO SCH (09:43)
[2018-10-29] MEDS: PANTOPRAZOLE SODIUM 40 MG ECT PO SCH (09:43)
[2018-10-29] MEDS: POTASSIUM CHLORIDE 10 MEQ TER PO SCH (09:43)
[2018-10-29] MEDS: QUETIAPINE FUMARATE 25 MG TAB PO SCH (09:43)
[2018-10-29] MEDS: DOXYCYCLINE 100 MG TAB PO SCH (09:43)
[2018-10-29] MEDS: FUROSEMIDE 80 MG TAB PO SCH (09:44)
[2018-10-29] MEDS: PROPRANOLOL HCL 10 MG TABLET PO SCH (09:44)
[2018-10-29] MEDS: ACETAMINOPHEN 325 MG PO SCH (09:44)
[2018-10-29] MEDS: INSULIN DEGLUDEC 200 UNIT/ML INSULN.PEN SQ SCH (09:49)
[2018-10-29] MEDS: ENOXAPARIN 40 MG SOL SC SCH (09:50)
[2018-10-29] MEDS: CLONAZEPAM 0.5 MG TAB PO SCH (09:50)
[2018-10-29] MEDS: TRAMADOL HYDROCHLORIDE 50 MG TAB PO SCH ×2 (09:50→13:27)
[2018-10-29 10:23] VITALS: BP 161/78; PULSE 63; RESP 16; TEMP 98
== END 2018-10-29 13:55 | disposition short-term general hospital (02) | DRG 602 ==
LOC: ACUTE CARE 17:31
PROVIDERS: ADMIT Family Medicine; ATTEND Family Medicine
DX: L03.115 Cellulitis of right lower limb (principal); L89.613 Pressure ulcer of right heel, stage 3; I50.32 Chronic diastolic (congestive) heart failure; I48.0 Paroxysmal atrial fibrillation; E11.22 Type 2 diabetes mellitus with diabetic chronic kidney disease; N18.2 Chronic kidney disease, stage 2 (mild); Z79.4 Long term (current) use of insulin; R53.1 Weakness; L97.519 Non-pressure chronic ulcer of other part of right foot with unspecified severity; L89.152 Pressure ulcer of sacral region, stage 2; R23.4 Changes in skin texture
CPT/HCPCS: 36415; 80048; 82962; 85025; 87040; 93926; 99203; 99231; J1650; J2543; J3370; A6232; A9270; A9270-GY; J1815

== ENCOUNTER 2019-02-04 15:58 | Emergency (ER) | payer MEDICARE, OTHER ==
[2019-02-04 16:05] VITALS: TEMP 97.2
[2019-02-04] MEDS ORDERED: ONDANSETRON HCL 4 MG/2 ML SOL IV ONE (16:28)
[2019-02-04] MEDS ORDERED: SODIUM CHLORIDE 0.9% 1000ML 1,000 ML IV SCH (16:30)
[2019-02-04] MEDS ORDERED: ONDANSETRON HCL 4 MG/2 ML SOL ONE (16:46)
[2019-02-04 16:52] LABS: BASOPHILS % (AUTO) 1 % (0-3); EOSINOPHILS % (AUTO) 4 % (0-9); HEMATOCRIT 44 % (35-47); HEMOGLOBIN 13.1 gm/dl (12.0-15.5); LYMPHOCYTES % (AUTO) 34.9 % (10-50); MEAN CORPUSCULAR HEMOGLOBIN 26.4 pg (27.0-32.0); MEAN CORPUSCULAR HGB CONC 29.9 gm/dl (32.0-36.0); MEAN CORPUSCULAR VOLUME 88 fL (81-99); MONOCYTES % (AUTO) 9.5 % (0-12)
[2019-02-04 17:14] LABS: ALBUMIN 3.1 gm/dl (3.4-5.0); ALKALINE PHOSPHATASE 139 IU/L (46-116); ALT 20 IU/L (14-63); AST 15 IU/L (15-37); BILIRUBIN,TOTAL 0.2 mg/dl (0.2-1.0); BLOOD UREA NITROGEN 43 mg/dl (7-18); CALCIUM 9.3 mg/dl (8.5-10.1); CHLORIDE 104 mMol/L (98-107); CREATININE 1.22 mg/dl (0.60-1.00); GLUCOSE 132 mg/dl (74-106); TOTAL PROTEIN 7.8 gm/dl (6.4-8.2); TROP I < 0.017 ng/ml (0.000-0.056)
[2019-02-04 17:40] LABS: APPEARANCE,URINE Clear; BILIRUBIN,URINE NEGATIVE (NEGATIVE); COLOR,URINE Light yellow; GLUCOSE, URINE (UA) NEGATIVE (NEGATIVE); KETONES,URINE NEGATIVE (NEGATIVE); LEUKOCYTE ESTERASE ,URINE NEGATIVE (NEGATIVE); NITRATE,URINE NEGATIVE (NEGATIVE); OCCULT BLOOD,URINE NEGATIVE (NEG-TRACE); UROBILINOGEN,URINE 0.2 (0.2-1.0 EU)
[2019-02-04 17:44] LABS: BACTERIA RARE (< 1+); CRYSTALS NEGATIVE (0-3 AVE/HPF); RBC,URINE 0-2 (0-3AV/HPF); WBC,URINE 0-2 (0-5AV/HPF)
[2019-02-04 18:48] LABS: ABG PH 7.38 (7.35-7.45)
[2019-02-04 21:50] VITALS: BP 162/72; PULSE 60; RESP 20; O2SAT 96
== END 2019-02-04 21:38 | DRG 312 ==
LOC: ED 15:58
DX: R55 Syncope and collapse (principal); L97.419 Non-pressure chronic ulcer of right heel and midfoot with unspecified severity; R10.9 Unspecified abdominal pain; E11.9 Type 2 diabetes mellitus without complications; R11.2 Nausea with vomiting, unspecified; R06.00 Dyspnea, unspecified
CPT/HCPCS: 36415; 36600; 74177; 80053; 81001; 82803; 83605; 83880; 84484; 85025; 93005; 96365; 96366; 96374; 99284; 99285; J2405; Q9967